=== PATIENT | male | born 1960 | race Caucasian/White ===

== ENCOUNTER 2018-09-15 10:01 | Observation (INO) | payer BC ==
[2018-09-15 10:49] LABS: PLATELET COUNT 182 10^3/uL (150-400)
--- NOTE | 2018-09-15 11:01 | EDPHY ---
General - History Smoking Status: Never smoked Time Seen by Provider: 09/15/18 10:13 Narrative: CLINICAL IMPRESSION: Dyspnea, intermittent chest pain, dizziness ASSESSMENT/PLAN: 58-year-old male with no reported significant medical history presents to the emergency department with his with a 2 year history of morning dyspnea, intermittent chest pain, and dizziness that has been getting worse over the last 2 weeks. On arrival, patient has stable vital signs, no tachycardia, tachypnea, or hypoxia. He does frequently take deep inspirations. He reports mild left anterior chest wall discomfort. Initial and repeat EKG show normal sinus rhythm, no acute ST or T-wave changes. Troponin negative. D-dimer negative. Remainder of lab work is reassuring. Patient's does report he has multiple apneic episodes at night but does not wear a CPAP machine and only recently got a referral for a sleep study. Patient reportedly only sleep 1-2 hours a night and travels frequently. He is a nonsmoker, does not use alcohol and no reported past history of DVT or PE. He was seen and examined by Dr. Alcantara. Based on patient's description of symptoms and reporting to his "I feel like I am going to ". It was recommended the patient be admitted for further cardiac evaluation. He has agreed to this. Dr. Alcantara spoke with their personal family friend who is also an ER provider. He was stabilized in the ED and will be admitted to Dr. Cassidy service. DIFFERENTIAL DX: Differential diagnosis includes but not limited to myocardial ischemia, pulmonary embolus, chest wall pain, pleural inflammation, musculoskeletal chest wall pain, aortic aneurysm, and pulmonary infectious causes. ED PROCEDURES: See lab and/or imaging results below ED COURSE: 10:30 a.m.:. Patient seen and assessed by myself. Vital signs stable, alert, oriented, frequently taking deep breaths but does not appear in severe pain. EKG shows normal sinus rhythm, no acute ST or T-wave changes, reviewed with Dr. Alcantara who will also seen examined the patient. Labs and chest x-ray pending at this time. CHIEF COMPLAINT: Chest pain, shortness of breath, vomiting, cough HPI: 58-year-old male with no reported medical history presents to the emergency department with his with vague complaints of intermittent morning chest pain, shortness of breath, coughing and dizziness. Patient reports his symptoms have been going on for nearly 2 years and usually only occur in the morning. However they have been getting worse over the last 2 weeks. Two days ago he called EMS to the house because he told his "I feel like I am dying ". Apparently an EKG was done at that time and patient's heart rate was variable between 50 and 130. Patient states he feels his pulse in his neck and chest and that it will very between 55 and 140. He reports he had a cardiac catheterization procedure by a [employer] air pollution specialist several years ago that was normal. He has never had a stress test or formal echocardiogram. He denies history of diagnosed hypertension, hyperlipidemia, diabetes, or prior cardiac history. He has never had a blood clot. He travels quite frequently for work and is supposed to leave this evening for trip. He admits that he is a very poor sleeper and only sleeps 1 or 2 hr every night. His reports he has frequent apneic episodes at night. He has a referral for a formal sleep study but has not perform this and does not wear a CPAP machine. He reports feeling dizzy, with 3/10 left-sided anterior chest discomfort radiating to the left neck , feels very fatigued and continues to feel somewhat short of breath. No personal family history of cardiac disease. He is a nonsmoker. He does not drink alcohol in excess. PAST MEDICAL HISTORY: None reported, IV contrast allergy See nurse/triage notes for additional history if applicable Pertinent Past Surgical History: None reported Family History: No first-degree family relative with cardiac history at a young age Social History: Nonsmoker, does not drink in excess, here with his REVIEW OF SYSTEMS: All other systems negative Constitutional: No fever, no chills, appetite change. Eyes: No discharge, vision change ENT: No sore throat, congestion, ear pain. Cardiovascular: Positive for intermittent chest pain and palpitations.] Respiratory: Positive for cough and shortness of breath. Gastrointestinal: No abdominal pain, positive for post tussive vomiting, diarrhea. Genitourinary: No hematuria, dysuria, flank pain, pelvic pain Musculoskeletal: No back pain, joint swelling, joint pain, myalgias. Skin: No rashes, color change. reports patient is pale Neurological: No headache, positive for dizziness, weakness. PHYSICAL EXAM: General Appearance: Alert, oriented, appropriate, cooperative, NAD, well hydrated, appears very fatigued, frequently taking deep breaths, VSS, no hypoxia. HEENT: Oropharynx clear is no erythema or exudates, no tonsillar hypertrophy or asymmetry. Dentition without abnormality.] Eyes: PERRLA, no acute vision change, nystagmus, swelling, discharge, pain or photosensitivity. Conjunctiva pink, no pallor or injection Neck: Supple, nontender, no lymphadenopathy, no midline pain, FROM, no meningismus. No carotid bruits Respiratory: There are no retractions, lungs are clear to auscultation. No reproducible left anterior chest wall pain or neck pain Cardiac: Regular rate and rhythm, no murmurs or gallops. Gastrointestinal: Abdomen is soft, nontender, bowel sounds normal, no masses/ hernia, no rigidity, guarding or focal peritoneal findings. Neurological: [ Alert and oriented x 3, CN 2-12 grossly intact Skin: Warm, dry, no rashes, no nodules on palpation. Musculoskeletal: Extremities are symmetrical, full range of motion, no tenderness, deformity, swelling, or erythema. No asymmetric calf swelling, pain or erythema Psychiatric: Patient is oriented X 3, there is no agitation. MEDICAL DECISION MAKING: Patient was seen independently. Secondary supervising physician at time of evaluation was Dr. Alcantara. Diagnosis: Dyspnea, dizziness, chest pain . New, requires workup Summary: See Assessment and Plan for summary of ED visit Clinical lab tests: ordered / reviewed. Independent visualization of images, tracing, or specimens: Yes / No. Decision to obtain medical records or history from someone other than the patient: Patient's Review / Summarize previous medical records: Yes Discussed patient with another provider: Dr. Alcantara Patient Progress: Stay stable for admission (Uche De Guzman) Medical Decision Making: I examined and evaluated this patient myself. We had an extensive discussion regarding risks of delaying definitive diagnosis and patient is comfortable with plan for admission. (Lang Alcantara) - Objective Vital Signs: Initial Vital Signs Temperature (C) 36.7 C 09/15/18 10:03 Heart Rate 79 09/15/18 10:03 Respiratory Rate 18 09/15/18 10:03 Blood Pressure 117/92 H 09/15/18 10:03 O2 Sat (%) 96 09/15/18 10:03 O2 Delivery Mode Room Air Allergies/Adverse Reactions: Iodinated Contrast- Oral and IV Dye [IV Dye, Iodine Containing] Allergy ( Intermediate, Verified 09/15/18 10:02) Hives Penicillins Allergy (Intermediate, Verified 09/15/18 10:02) Hives Home Medications: Medication Instructions Recorded NK [No Known Home Meds] 09/15/18 Laboratory Results: Laboratory Results 09/15/18 10:37 09/15/18 10:37 Medications Given: Aspirin Buffered (Aspirin Ec) 81 mg PO DAILY TOM Stop: 03/14/19 13:44 Last Admin: 09/16/18 09:48 Dose: 81 mg Discontinued Medications Sodium Chloride (Ns) 1,000 mls @ 0 mls/hr IV EDNOW ONE; Wide Open PRN Reason: Protocol Stop: 09/15/18 11:15 Last Admin: 09/15/18 11:17 Dose: 1,000 mls Point of Care Test Results: Chemistry 09/15/18 10:40 POC Troponin I 0.01 ng/mL ng/mL (0.00-0.08) Departure - Departure Disposition: [facility] Inpatient Acute
[2018-09-15] MEDS ORDERED: NS 1,000 ML IV ONE (11:14)
[2018-09-15] MEDS ORDERED: ACETAMINOPHEN 325 MG TAB PO PRN (13:38)
[2018-09-15] MEDS ORDERED: ONDANSETRON 4 MG/2 ML VIAL IVP PRN (13:38)
[2018-09-15] MEDS ORDERED: NITROGLYCERIN 0.4 MG BTL SL PRN (13:39)
[2018-09-15] MEDS: ASPIRIN EC 81 MG TAB PO SCH (14:14)
--- NOTE | 2018-09-15 14:27 | GHP ---
[f rep st] HISTORY AND PHYSICAL DATE OF ADMISSION: 09/15/2018 CHIEF COMPLAINT: Chest pain. HISTORY OF PRESENT ILLNESS: The patient is a 58-year-old male, who was admitted for chest pain here in 2010, and had a cardiac catheterization that showed a 40% mid LAD lesion. He was prescribed a statin drug. He states he only took the statin for about 1 month and then discontinued it, because he "heard bad things about them." He now re-presents to the hospital with chest pain. He has had 2 days of a left-sided chest ache that radiates to his jaw. Last night it got much more sharp and severe. He has actually been having some concerning symptoms for longer than this. Every morning he wakes up at 4 o' clock in the morning completely short of breath. He notices this gets better when he sits upright. Denies any lower extremity edema. He used to try to work out on the treadmill, but he noticed every time he did a treadmill workup the next morning, he would have a more severe episode of shortness of breath at 4 o'clock in the morning. 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 According to his , during these episodes he looks ashen, white. PAST MEDICAL HISTORY: 1. Coronary artery disease, with known 40% mid LAD lesion. 2. Hyperlipidemia. MEDICATIONS: Please see computerized record for full detailed list. ALLERGIES: To IV dye and penicillin. SOCIAL HISTORY: He smoked only in high school. He has a history of binge drinking in the past, but has cut down for the last 10 years. Last time he had any alcohol was 2 months ago. He had 1 beer that caused GI distress, and he has had nothing since then. He lives with his . REVIEW OF SYSTEMS: Complete review of systems obtained on review of systems negative regarding constitutional, HEENT, GI, pulmonary, vascular, , hematology, skin, muscular, endocrine, psych except for positives and negatives as noted in HPI. FAMILY HISTORY: Reviewed, noncontributory to presenting complaint. PHYSICAL EXAMINATION: GENERAL: Well-developed, well-nourished male, in no distress. VITAL SIGNS: Temperature 36.7, pulse 64, blood pressure 114/84, saturating 96% on room air. EYE EXAMINATION: Normal conjunctivae. Pupils equal and react to light. ENT: Normal ears and nose. Hearing intact. Normal teeth. Oropharynx moist. NECK: Trachea midline. No thyromegaly. CHEST: Normal effort, lungs clear to auscultation bilaterally. CARDIOVASCULAR: Regular rate and rhythm. No murmur. No lower extremity edema. ABDOMEN: Soft , nontender. No hepatosplenomegaly. SKIN: Warm, dry, intact. No rash. MUSCULOSKELETAL: No cyanosis or clubbing. Strength 5/5 upper and lower extremities. NEURO: Cranial nerves intact. Normal sensation to light touch. PSYCHIATRIC: Alert and oriented x3. Normal affect. Normal judgment. Normal memory. DATA REVIEWED: Labs: White count 4.67, hematocrit 47.7, platelets 182, sodium 139, potassium 4.3, chloride 108, bicarb 22, BUN 19, creatinine 1.0, glucose 101 , troponins negative. D-dimer is negative. EKG viewed by me: My personal interpretation is normal sinus rhythm. No ST or T-wave changes. Chest x-ray is negative. Medical records reviewed. Hospitalized here in 2010, with cardiac catheterization as described above. ASSESSMENT/PLAN: 1. Chest pain. His heart score is 4. He has known coronary artery disease, with a known 40% mid LAD lesion in 2010. Since then he has been noncompliant with statin therapy. He has a highly suspicious history, and I suspect this lesion has progressed over the last 8 years. I have discussed this case with Dr. Ying. Given the high risk nature plan is to proceed with cardiac catheterization and skip the stress test. We will make him n.p.o. after midnight for cardiac catheterization in the morning. We will follow serial EKGs and troponins overnight. 2. Hyperlipidemia. Recheck a lipid panel in the morning. He will likely need to restart a statin. 3. Paroxysmal nocturnal dyspnea. We will check an echocardiogram. 4. COR status is full. 5. Admission status: We will admit to observation. Re-evaluate tomorrow. 6. Deep vein thrombosis prophylaxis. He is low risk. /[id number]/MODL MTDD
--- NOTE | 2018-09-15 14:39 | CPEKG ---
Test Reason : OPEN Blood Pressure : / mmHG Vent. Rate : 057 BPM Atrial Rate : 056 BPM P-R Int : 148 ms QRS Dur : 093 ms QT Int : 438 ms P-R-T Axes : 011 003 024 degrees QTc Int : 427 ms Sinus rhythm Confirmed by Lang Alcantara ([id number]) on 09/15/2018 2:39:07 PM Referred By: Lang Alcantara Confirmed By:Lang Alcantara
--- NOTE | 2018-09-15 14:40 | CPEKG ---
Test Reason : OPEN Blood Pressure : / mmHG Vent. Rate : 071 BPM Atrial Rate : 071 BPM P-R Int : 140 ms QRS Dur : 091 ms QT Int : 407 ms P-R-T Axes : 012 001 034 degrees QTc Int : 443 ms Sinus rhythm Confirmed by Lang Alcantara ([id number]) on 09/15/2018 2:39:36 PM Referred By: Lang Alcantara Confirmed By:Lang Alcantara
--- NOTE | 2018-09-15 15:24 | ASMTCMCOM ---
CM Note CM Note Notes: Chart reviewed for discharge planning purposes. Patient is a 58 year old male admitted via ED with c/o chest pain. Known history of lesion to LAD. Stopped statin therapy. Plan cardiac cath in am. Normally lives independently with hos . CM to follow for needs, plan: TBD Date Signed: 09/15/2018 03:24 PM Electronically Signed By:Analia Jean RN
--- NOTE | 2018-09-15 16:16 | GHP ---
[f rep st] HISTORY AND PHYSICAL DATE OF ADMISSION: 09/15/2018 REFERRING PHYSICIAN: Chika Cassidy MD CHIEF COMPLAINT: We have been asked by Dr. Cassidy to evaluate the patient with a chief complaint of chest pain. HISTORY OF PRESENT ILLNESS: The patient is a 58-year-old gentleman with known coronary artery disease, who presents with a chief complaint of chest pain. The patient was in his usual state of health until several years ago when he began to have episodes of profound coughing that would wake him from his sleep. The episodes were associated with shortness of breath, a rapid heart rate, and dry heaves. The patient has associated the episodes with alcohol intake, post exercise and associated with poor sleep. The patient does remain moderately active exercising on a treadmill. The patient states he is able to run 4 miles in an hour without difficulty, but does note he will have one of these spells that evening or the next. The patient does have a previous history of coronary artery disease. He was last evaluated by me in September of 2010. Cardiac catheterization at that time demonstrated a 40% stenosis in his mid to distal left anterior descending coronary artery. He was started on medical therapy, but has not continued it as he has heard bad things about the statin drugs. The patient's does report a history of snoring as well as apnea. The patient was recommended to have a sleep study by his dentist. He has not yet scheduled the sleep study. PAST MEDICAL HISTORY: 1. Coronary artery disease. 2. Hyperlipidemia. MEDICATIONS: Please see medicine reconciliation form. ALLERGIES: 1. Penicillin. 2. IV contrast. 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 He has not been drinking over the last 2 months. He denies smoking. FAMILY HISTORY: Noncontributory. REVIEW OF SYSTEMS: A 10-point review of systems is unremarkable except as noted in HPI. PHYSICAL EXAMINATION: GENERAL: The patient is resting in bed. He does take several deep breaths during conversation. VITAL SIGNS: Temperature is afebrile. Pulse is 61, blood pressure 130/85, respiratory rate is 16, SaO2 is 97% on room air. HEENT: Normocephalic, atraumatic. Extraocular muscles intact. NECK: No JVD. No bruits. LUNGS: Clear to auscultation bilaterally. CARDIOVASCULAR: Regular rate and rhythm. S1, S2. No murmurs, rubs, or gallops appreciated. ABDOMEN: Soft, nontender. Normoactive bowel sounds. EXTREMITIES: No clubbing, cyanosis, or edema. SKIN: No evidence of rashes. LABORATORY: White blood cell count is 4.67, hemoglobin 16.3, hematocrit is 47.7 , platelet count is 182. Sodium 139, potassium 4.3, chloride 108, CO2 22, BUN 19, creatinine 1.0. Troponin within normal limits x1. D-dimer is 0.33. EKG demonstrates sinus rhythm with no acute ST or T-wave changes. Chest x-ray demonstrates no acute cardiopulmonary disease. ASSESSMENT AND PLAN: The patient is a 58-year-old gentleman with: 1. Chest pain. The patient presents with an episode of chest pain in the setting of a coughing fit associated with dry heaves and shortness of breath. His EKG demonstrates no acute ST or T-wave changes. His initial troponin is within normal limits. The patient does have known coronary artery disease by cardiac catheterization in 2010. Reviewed options for risk stratification with the patient and his , including stress testing and cardiac catheterization. The patient and his wish to pursue cardiac catheterization at this time. 2. Coughing spells. The patient reports a several year history of waking up at night with these profound coughing spells associated with shortness of breath , dry heaves and a rapid heart rate into the 130s and 140s. There is a history of snoring as well as witnessed apneic events. Suspect there is a component of obstructive sleep apnea contributing to his symptomatology. I think the patient would likely benefit from a formal sleep study to further evaluate his condition. 3. Palpitations. Patient does report a rapid heart rate in the setting of the coughing spells as noted above. Will continue to monitor on telemetry monitoring. This potentially could be related to atrial fibrillation secondary to his potential obstructive sleep apnea. We will continue to evaluate. Will also plan on obtaining an echocardiogram to look for structural heart disease. /[id number]/MODL MTDD
[2018-09-16] MEDS: ASPIRIN EC 81 MG TAB PO SCH (09:48)
[2018-09-16] MEDS ORDERED: DIAZEPAM 5 MG TAB PO ONE (10:52)
[2018-09-16] MEDS ORDERED: TEMAZEPAM 15 MG CAP PO PRN (10:52)
[2018-09-16] MEDS ORDERED: ASPIRIN EC 325 MG TAB PO ONE (10:52)
[2018-09-16] MEDS ORDERED: methylPREDNISolone SOD SUCC 125 MG/2 ML VIAL IVP ONE (10:53)
[2018-09-16] MEDS ORDERED: FAMOTIDINE 20 MG in NS 100 ML IV ONE (10:53)
[2018-09-16] MEDS ORDERED: NS 1,000 ML IV SCH (11:00)
[2018-09-16] MEDS ORDERED: FAMOTIDINE 20 MG/NACL 50 ML IV ONE (11:15)
[2018-09-16] MEDS ORDERED: LIDOCAINE 1% 300 MG/30 ML SDV ONE (13:12)
[2018-09-16] MEDS ORDERED: fentaNYL 100 MCG/2 ML INJ ONE (13:12)
[2018-09-16] MEDS ORDERED: IOPAMIDOL (ISOVUE-370) 150 ML BTL IV ONE ×2 (13:13→15:02)
[2018-09-16] MEDS ORDERED: MIDAZOLAM 2 MG/2 ML VIAL ONE (13:13)
--- NOTE | 2018-09-16 14:16 | ASMTCMCOM ---
CM Note CM Note Notes: 09/16/2018 Case Management Note Discussed pt during rounds this morning. Pt to clinical lab scientist today. present at beside. There are no identified d/c case management needs d/t pt age, marital status, employment status and independence with ADL's prior to admission. There are no therapy evals ordered today. Case Management d/c poc: independent with follow up as directed. Case Management available if needs change. Date Signed: 09/16/2018 02:15 PM Electronically Signed By:Yudi Daley RN
--- NOTE | 2018-09-16 15:00 | ECHO ---
[email or web address] [address] Main: [phone] Fax: [email or web address] Echocardiogram Name: MOOK IVEY MR#: [id number] Study Date: 09/16/2018 Study Time: 09:03 AM Date of : 1960 Age: 58 year(s) Height: 180.3 cm (71 in.) Weight: 81.65 kg (180 lb.) BSA: 2.02 m2 Gender: Male Examination: Echo Indication: PND/Othopnea Image Quality: Contrast: Requested by: Chika Cassidy BP: 113 mmHg/73 mmHg Heart Rate: Rhythm: Normal sinus rhythm Indication: PND/Othopnea Procedure Staff Employee Services Manager: Navin Johnson RDCS Reading Physician: Jose Rivera MD Requesting Provider: Conclusions: Normal size left ventricle. Normal global systolic LV function. EF is 65 %. No regional wall motion abnormality. Normal diastolic LV function. There are no significant valvular abnormalities. Measurements: Chambers Valvular Assessment AV/MV Valvular Assessment TV/PV Normal Normal Normal Name Value Range Name Value Range Name Value Range Ao Grace (MM): 3.2 cm (2.2 cm-3.7 AV Vmax: 0.99 m/s (1 m/s-1.7 PV Vmax: 1.21 m/s (0.6 m/s-0.9 cm) m/s) m/s) IVSd (2D): 0.8 cm (0.6 cm-1.1 AV maxP mmHg ( - ) PV PGmax: 6 mmHg ( - ) cm) LVOT Vmax: 0.61 m/s (0.7 m/s-1.1 LVDd (2D): 4.5 cm (4.2 cm-5.9 m/s) cm) MV E Vmax: 0.62 m/s ( - ) LVDs (2D): 2.9 cm (2.1 cm-4 MV A Vmax: 0.50 m/s ( - ) cm) MV E/A: 1.24 ( - ) LVPWd (2D): 1.1 cm (0.6 cm-1 cm) LVEF (2D): 65 (>=54 %) Continued Measurements: Chambers Valvular Assessment AV/MV Name Value Name Value LADs Lon.4 cm MV E' Septal: 0.07 m/s LA Area: 14.8 cm2 MV E/E' Septal: 8.80 MV E/E' Lateral: 7.10 Patient: MOOK IVEY Study Date: 09/16/2018 Page 1 of 2 09:03 AM Findings: Left Ventricle: Normal size left ventricle. No LV hypertrophy. Normal global systolic LV function. EF is 65 %. No regional wall motion abnormality. Normal diastolic LV function. Right Ventricle: Normal size right ventricle. Normal RV function. Left Atrium: The left atrium is normal in size. Right Atrium: The right atrium is normal in size. Mitral Valve: The mitral valve is normal in appearance and function. There is no significant mitral valve regurgitation. No mitral stenosis is present. Aortic Valve: The aortic valve is tri-leaflet. The aortic valve is normal in appearance and function. Tricuspid Valve: The tricuspid valve is normal in appearance and function. Pulmonic Valve: The pulmonic valve is normal in appearance and function. Aorta: The aorta is normal. Pericardium: No pericardial effusion. There is pericardial fat. (No Signature Object) Patient: MOOK IVEY Study Date: 09/16/2018 Page 2 of 2 09:03 AM [id number]
[2018-09-16] MEDS ORDERED: ATROPINE SULFATE 1 MG/10 ML SYR IVP PRN (15:10)
[2018-09-16] MEDS ORDERED: OXYCODONE/APAP 5/325 TAB PO PRN (15:10)
[2018-09-16] MEDS ORDERED: HYDROCODONE/APAP 5/325 TAB PO PRN (15:10)
--- NOTE | 2018-09-16 15:28 | SOAPPROG ---
JULIAN Progress Note Assessment/Plan: 1. Chest pain - Pt presents with symptoms of chest pain in the setting of cough and SOB. He has known CAD by angiogram approximately 7 years ago. Reviewed risks and benefits of angiogram with patient and his to further evaluate his condition. Will arrange to have this performed. 2. Hyperlipidemia - Pts LDL is above goal. Will start lipitor 20 mg daily. Subjective: No chest pain or SOB overnight + dizziness No significant arrhythmias on telemetry monitoring. Objective: Vital Signs Temp Pulse Resp BP Pulse Ox 36.6 C 85 18 113/73 95 09/16/18 08:00 09/16/18 08:00 09/16/18 08:00 09/16/18 08:00 09/16/18 08:00 09/15/18 09/16/18 09/17/18 05:59 05:59 05:59 Intake Total 2069 Balance 2069 Physical Exam - Physical Exam General Appearance: alert, mild distress Respiratory: lungs clear Cardiac/Chest: regular rate, rhythm Extremities: No pedal edema Neuro/Psych: alert, oriented x 3 ICD10 Worksheet Patient Problems: Problems Problem Status Onset Chest pain Acute - ICD10 Problem Qualifiers (1) Chest pain
--- NOTE | 2018-09-16 16:53 | CPIP ---
[f rep st] INVASIVE CARDIAC PROCEDURE DATE OF PROCEDURE: 09/16/2018 PROCEDURES: 1. Coronary angiography. 2. Left ventriculography. INDICATION: Chest pain syndrome, concerning for an acute coronary syndrome. ACCESS: Patient was prepped and draped in sterile fashion. 1% lidocaine was used to anesthetize the right inguinal region. A 6-Zimbabwean introducer sheath was placed selectively into the right common fe moral artery via modified Seldinger technique. CORONARY ANGIOGRAPHY: A 6-Zimbabwean JL4 was advanced to the left main coronary artery and images obtain ed. The left main coronary artery trifurcated into an LAD, ramus, and circumflex coronary arteries. The left main coronary artery appeared normal. The left anterior descending coronary artery had a s poncho discrete 40% stenosis in the mid to distal vessel. This did not appear to be significantly aria nged from his previous echocardiogram approximately 7 years ago. The ramus coronary artery is a smal p-[id number] sized vessel. The ramus coronary artery appeared normal. The circumflex coronary cyndee ry is a moderate-sized vessel. The circumflex coronary artery appeared normal. A 6-Zimbabwean JR4 was a dvanced to the right coronary artery and images obtained. The right coronary artery is dominant. Th e right coronary artery appeared normal. LEFT VENTRICULOGRAPHY: A 6-Zimbabwean pigtail catheter was advanced in the left ventricle and images obt ained. Left ventricle is normal size and normal systolic function. There are no segmental wall bernard on abnormalities. COMPLICATIONS: None. CONCLUSIONS: 1. Mild coronary artery disease without flow limitation. 2. Normal left ventricular size and systolic function. 3. Plan is for medical management. /[id number]/MODL
[2018-09-16 17:23] VITALS: BP 114/77
--- NOTE | 2018-09-16 18:08 | GDS ---
[f rep st] DISCHARGE SUMMARY DISCHARGE DIAGNOSES: 1. Chest pain and shortness of breath. Suspect anxiety contributing. 2. Hyperlipidemia. 3. 40% mid left anterior descending coronary artery disease. 4. Possible obstructive sleep apnea. HISTORY: The patient is a 58-year-old male who had a cardiac catheterization in 2010 that showed a 4 0% mid LAD lesion. He was prescribed a statin drug, but only took it for about 1 month because he di d Internet research and heard bad things about them and so stopped. He presented to the hospital 2 d ays ago with left-sided chest pain, radiating to his jaw, as well as episodes of waking up at 4 a.m. completely short of breath. He was admitted to the hospital. We had a very high suspicion for progr ession of this LAD lesion as the cause of his symptoms, so I consulted Dr. Ying. The patient had a cardiac catheterization. Luckily, the 40% mid LAD lesion is stable and has not progressed despite h is noncompliance with statin therapy. He is now agreeable to take a statin. We will also prescribe him a daily aspirin. His echocardiogram looked good. We are suspicious he may have obstructive slee p apnea and recommend he have an outpatient sleep study as well as reestablishing with Primary Care f or further management of his anxiety and insomnia. DISCHARGE MEDICATIONS: Please see computerized record for full detailed list. New medications: 1. Aspirin 81 mg p.o. daily. 2. Lipitor 20 mg p.o. daily. ADDITIONAL DISCHARGE INSTRUCTIONS: 1. Outpatient sleep study. 2. I recommend establishment with Primary Care. Greater than 30 minutes' time spent arranging this discharge. Patient was seen and examined by me on the day of discharge. /[id number]/MODL
[2018-09-17] MEDS ORDERED: ATORVASTATIN CALCIUM 20 MG TAB PO SCH (09:00)
--- NOTE | 2018-09-18 11:56 | CPEKG ---
Test Reason : OPEN Blood Pressure : / mmHG Vent. Rate : 071 BPM Atrial Rate : 072 BPM P-R Int : 136 ms QRS Dur : 091 ms QT Int : 407 ms P-R-T Axes : 012 003 032 degrees QTc Int : 443 ms Sinus rhythm Low voltage, extremity leads Confirmed by Mikael Ying ([id number] on 09/18/2018 11:56:22 AM Referred By: Chika Cassidy Confirmed By:Mikael Ying
== END 2018-09-16 19:14 | disposition home or self-care (01) ==
LOC: F2W 13:38
PROVIDERS: ADMIT Internal Medicine; ATTEND Internal Medicine
DX: R07.9 Chest pain, unspecified (principal); R06.02 Shortness of breath; I25.10 Atherosclerotic heart disease of native coronary artery without angina pectoris; E78.5 Hyperlipidemia, unspecified; E86.9 Volume depletion, unspecified; R00.2 Palpitations; R42 Dizziness and giddiness; Z91.14 Patient's other noncompliance with medication regimen; Z88.0 Allergy status to penicillin; Z91.041 Radiographic dye allergy status
CPT/HCPCS: 71046; 93005; 93306; 93458; 96361; 96374; 96375; 99285; G0378; 84484-ER; C1760; J1200; J2250; J2930; J3010; Q9967

== ENCOUNTER → 2018-12-11 | Outpatient (CLI) | payer BC | LOC: FIMAGING 09:34 ==